=== PATIENT | male | born 1955 | race Caucasian/White ===

== ENCOUNTER 2023-06-18 09:11 | Emergency (ER) | payer BC, OTHER ==
--- NOTE | 2023-06-18 09:27 | ER ---
Nurse's Notes [facility] Name: Francisco Guerrero Age: 67 yrs Sex: Male : 1955 Arrival Date: 06/18/2023 Time: 09:11 Bed IW1 Private MD: Diagnosis: Zoster without complications Presentation: 06/18 09:23 Chief complaint: Patient states: Rash to left lateral aspect of torso. Coronavirus jl7 screen: At this time, the client does not indicate any symptoms associated with coronavirus-19. Ebola Screen: No symptoms or risks identified at this time. Initial Sepsis Screen: Does the patient meet any 2 criteria? No. Patient's initial sepsis screen is negative. Does the patient have a suspected source of infection? No. Patient's initial sepsis screen is negative. Risk Assessment: Do you want to hurt yourself or someone else? Patient reports no desire to harm self or others. Onset of symptoms is unknown. 09:23 Method Of Arrival: Ambulatory [facility] 09:23 Acuity: YARA 4 jl7 Triage Assessment: 09: General: Appears in no apparent distress. uncomfortable, Behavior is calm, cooperative, jl7 appropriate for age. Pain: Denies pain. Derm: Rash noted that is itchy, red. Historical: - Allergies: 09: No Known Allergies; jl7 - Home Meds: 09:25 Synthroid Oral [Active]; carvedilol oral [Active]; jl7 - PMHx: 09:25 Hypothyroidism; Hypertensive disorder; jl7 - Immunization history:: Adult Immunizations up to date. - Social history:: Smoking status: Patient denies any tobacco usage or history of. Screenin: [facility] ED Fall Risk Assessment (Adult) Score/Fall Risk Level 0 - 2 = Low Risk jl7 Oriented to surroundings, Maintained a safe environment. Abuse screen: Denies threats or abuse. Denies injuries from another. Nutritional screening: No deficits noted. Tuberculosis screening: No symptoms or risk factors identified. Assessment: : Reassessment: JILLIAN Hargrove in triage assessing pt. jl7 Vital Signs: : Pulse 82; Resp 15; Temp 97.7; Pulse Ox 100% ; jl7 : Weight 91.63 kg; Height 6 ft. 3 in. ; jl7 : Body Mass Index 25.25 (91.63 kg, 190.5 cm) jl7 ED Course: 09:15 Patient arrived in ED. mr 09:19 [facility]ena Morse F[facility]-C [facility] kb 09:19 Tomas Owens DO is Attending Physician. kb 09:25 Triage completed. jl7 09:25 Arm band placed on right wrist. jl7 09:27 Patient has correct armband on for positive identification. jl7 09:27 No provider procedures requiring assistance completed. Patient did not have IV access jl7 during this emergency room visit. 10:03 Provided Education on: discharge instructions. ap3 Administered Medications: No medications were administered Medication: : VIS not applicable for this client. jl7 Outcome: : Discharge ordered by MD. kb 09:28 Discharged to home ambulatory, jl7 :28 Condition: stable :28 Discharge instructions given to patient, Instructed on discharge instructions, follow up and referral plans. medication usage, Demonstrated understanding of instructions, follow-up care, medications, Prescriptions given X 3, 10:04 Patient left the ED. ap3 Signatures: Beena Morse FNP-C FNP-Talisha Schneider, Reg Reg CalderonFer, RN RN jl7 Kaitlin Chandler RN RN ap3 Corrections: (The following items were deleted from the chart) 09:26 09:25 Allergies: Aspirin; jl7 jl7
--- NOTE | 2023-06-18 09:27 | EDPHYS ---
Physician Documentation [facility] Name: Francisco Guerrero Age: 67 yrs Sex: Male : 1955 Arrival Date: 06/18/2023 Time: 09:11 Bed IW1 Private MD: ED Physician Tomas Owens HPI: 06/18 09:29 This 67 yrs old Male presents to ER via Ambulatory with complaints of Rash. kb 09:29 Patient is a 67-year-old male who presents for a rash to left flank and left abdomen kb that started 4 days ago. Reports rash has been itchy. Denies any contact with any new substances. Reports he did have COVID about 4 weeks ago after traveling to [place].. Historical: - Allergies: :25 No Known Allergies; jl7 - Home Meds: :25 Synthroid Oral [Active]; carvedilol oral [Active]; jl7 - PMHx: 09:25 Hypothyroidism; Hypertensive disorder; jl7 - Immunization history:: Adult Immunizations up to date. - Social history:: Smoking status: Patient denies any tobacco usage or history of. ROS: 09:29 Constitutional: Negative for fever, chills, and weight loss, kb 09:29 Skin: Positive for rash, of the anterior aspect of left lateral abdomen and posterior aspect of left lateral abdomen, 09:29 All other systems are negative, Exam: 09:29 Constitutional: This is a well developed, well nourished patient who is awake, alert, kb and in no acute distress. Head/Face: Normocephalic, atraumatic. Cardiovascular: Regular rate Respiratory: Respirations even and unlabored. No increased work of breathing. Talking in full sentences MS/ Extremity: Pulses equal, no cyanosis. Neurovascular intact. Full, normal range of motion. Neuro: Awake and alert, GCS 15, oriented to person, place, time, and situation. Moves all extremities. Normal gait. 09:29 Skin: rash a moderate rash is noted, rash can be described as erythematous, vesicular, consistent with zoster, on the posterior aspect of left lateral abdomen and anterior aspect of left lateral abdomen, Vital Signs: 09:23 Pulse 82; Resp 15; Temp 97.7; Pulse Ox 100% ; jl7 09:27 Weight 91.63 kg; Height 6 ft. 3 in. ; jl7 09:27 Body Mass Index 25.25 (91.63 kg, 190.5 cm) 7 MDM: 09:21 Patient medically screened. kb 09:32 Differential diagnosis: impetigo, varicella, allergic reaction, Zoster. Data reviewed: kb vital signs, nurses notes. Counseling: I had a detailed discussion with the patient and/or guardian regarding the historical points, exam findings, and any diagnostic results supporting the discharge/admit diagnosis, the need for outpatient follow up, a family practitioner, to return to the emergency department if symptoms worsen or persist or if there are any questions or concerns that arise at home. Administered Medications: No medications were administered Disposition: 09:52 I was immediately available on-site in the Emergency Department for consultation in the ms3 care of the patient. Disposition Summary: 06/18/23 09:27 Discharge Ordered Notes: Location: Home kb Condition: Stable kb Diagnosis - Zoster without complications kb Followup: kb - With: Emergency Department - When: As needed - Reason: Worsening of condition Followup: kb - With: Private Physician - When: 2 - 3 days - Reason: Recheck today's complaints, Continuance of care, Re-evaluation by your physician Discharge Instructions: - Discharge Summary Sheet kb - Shingles, [id number] kb Forms: - Medication Reconciliation Form kb - Thank You Letter kb - Antibiotic Education kb - Prescription Opioid Use kb - Patient Portal Instructions kb - Leadership Thank You Letter kb Prescriptions: - Valtrex 1 gram Oral tablet - take 1 tablet ORAL route 3 times per day for 7 days; 21 tablet; Refills: 0, kb Product Selection Permitted - Prednisone 20 mg Oral Tablet - take 1 tablet ORAL route once daily for 5 days; 5 tablet; Refills: 0, Product kb Selection Permitted - Pepcid 20 mg Oral Tablet - take 1 tablet ORAL route once daily for 10 days; 10 tablet; Refills: 0, Product kb Selection Permitted Signatures: Beena Morse, CAMILO MOONEY-Fer Cook RN RN 7 Tomas Owens DO DO ms3 Corrections: (The following items were deleted from the chart) 09:26 09:25 Allergies: Aspirin; [place] [id number]
[2023-06-18 10:22] VITALS: TEMP 97.7; O2SAT 100
== END 2023-06-18 10:04 | disposition home or self-care (01) ==
LOC: ER 09:11
DX: B02.9 Zoster without complications (principal); I10 Essential (primary) hypertension; E03.9 Hypothyroidism, unspecified
CPT/HCPCS: 99283

== ENCOUNTER 2024-09-24 18:13 | Inpatient (IN) | payer BC, OTHER ==
--- NOTE | 2024-09-24 20:01 | RAD REPORT ---
EXAM: CT brain without contrast HISTORY: DIZZINESS COMPARISON: None TECHNIQUE: Multiple contiguous axial images were obtained and a CT of the brain without contrast. Sag ittal and coronal reformats were performed. One or more of the following dose reduction techniques were used: Automated exposure control, adjust ment of the mA and/or kV according to patient size, and/or iterative reconstruction. FINDINGS: No evidence of hydrocephalus, intracranial hemorrhage, or extra-axial fluid collection. Moderate brain atrophy with moderate periventricular and deep white matter chronic microvascular isc hemic changes present. No evidence of midline shift or areas of brain edema. The calvarium is intact. The visualized paranasal sinuses and mastoid air cells are essentially clear . IMPRESSION: No evidence of acute intracranial abnormality.
[2024-09-24] MEDS ORDERED: ACETAMINOPHEN 500 MG TAB ONE (20:10)
[2024-09-24 20:20] LABS: Absolute Lymphocytes (CBC) 0.5 K/uL (0.7-4.9); Absolute Monocytes 0.3 K/uL (0.1-1.3); Absolute Neutrophil 2.3 K/uL (1.8-8.0); Basophils % 0.2 % (0-1.3); Hematocrit 43.3 % (39.6-49.0); Hemoglobin 14.7 g/dL (13.6-17.9); Lymphocytes % 17.6 % (15.3-44.8); MCH 32.3 pg (27.0-35.0); MCHC 33.9 g/dL (32.0-36.0); MCV 95.3 fL (80-100); MPV 7.8 fL (7.6-11.3); Monocytes % 8.4 % (3.3-12.3); Neutrophils % 73.8 % (41.7-73.7); Nucleated Red Blood Cells % 0.2 % (0-0); Platelets 129 thou/uL (152-406); RBC Red Blood Cell Count 4.54 M/uL (4.33-5.43); Red Cell Distribution Width 13.6 % (12.1-15.2)
[2024-09-24 20:29] LABS: PT Prothrombin Time 14.8 SECONDS (9.4-12.5); PTT, Activated Partial Thromb 30.3 SECONDS (24.3-36.9); Protime INR 1.41
[2024-09-24 20:32] LABS: Specific Gravity 1.029 (1.005-1.030); Sqamous Epithelial <5 /HPF (None Seen); Urine Bacteria None Seen /HPF (<20); Urine Bilirubin NEGATIVE (Negative); Urine Blood 2+ (Negative); Urine Clarity Clear (Clear); Urine Color Yellow (Yellow); Urine Crystals Unidentified Few /HPF (None Seen); Urine Culture Reflex Order NOT NEEDED; Urine Glucose NEGATIVE (Negative); Urine Ketones TRACE (Negative); Urine Microscopic Reflex YN ORDER UMIC; Urine Mucus Slight /HPF (None Seen); Urine Nitrite NEGATIVE (Negative); Urine Protein 1+ (Negative); Urine RBC <5 /HPF (None Seen); Urine Urobilinogen Normal (Normal); Urine WBC <5 /HPF (<5); Urine pH 5.5 (5.0-7.0)
[2024-09-24 20:36] LABS: Albumin 3.6 g/dL (3.4-5.0); Anion Gap 9.3 mEq/L (5.0-15.0); Bilirubin Total 0.7 mg/dL (0.2-1.0); Globulin 3.6 g/dL (2.3-3.5); Potassium 3.3 mEq/L (3.5-5.1); Protein, Total 7.2 g/dL (6.4-8.2)
--- NOTE | 2024-09-24 20:50 | RAD REPORT ---
EXAMINATION: ONE VIEW CHEST XR CLINICAL INDICATION: Congestion;Cough TECHNIQUE: Frontal chest projection is submitted. Examination is limited by patient positioning and t echnique. COMPARISON: No prior exam. FINDINGS: Moderate patchy opacity in the right lower lung compatible with pneumonia. Lungs otherwise clear. The heart is upper limit of normal in size. No displaced fractures identified. IMPRESSION: Patchy opacity in the right lung base compatible with pneumonia.
--- NOTE | 2024-09-24 21:51 | ER ---
Nurse's Notes [facility] Name: Francisco Guerrero Age: 68 yrs Sex: Male : 1955 Arrival Date: 09/24/2024 Time: 18:13 Bed 15 Private MD: Diagnosis: Lobar pneumonia, unspecified organism;Sepsis, unspecified organism;Hypoxemia Presentation: 09/24 19:06 Chief complaint: Patient states: shortness of breath and weakness. Is unable to walk cp4 due to balance issues. Coronavirus screen: Client denies travel out of the [place] in the last 14 days. At this time, the client does not indicate any symptoms associated with coronavirus-19. Ebola Screen: Patient negative for fever greater than or equal to 101.5 degrees Fahrenheit, and additional compatible Ebola Virus Disease symptoms Patient denies exposure to infectious person. Patient denies travel to an Ebola-affected area in the 21 days before illness onset. No symptoms or risks identified at this time. Initial Sepsis Screen: Does the patient meet any 2 criteria? HR > 90 bpm. No. Patient's initial sepsis screen is negative. Does the patient have a suspected source of infection? No. Patient's initial sepsis screen is negative. Risk Assessment: Do you want to hurt yourself or someone else? Patient reports no desire to harm self or others. Onset of symptoms was September 23, 2024. 19:06 Method Of Arrival: Wheelchair cp4 19:06 Acuity: YARA 3 cp4 Triage Assessment: 19:13 General: Appears in no apparent distress. uncomfortable, Behavior is calm, cooperative, cp4 appropriate for age. Pain: Complains of pain in Joints Pain does not radiate. Pain currently is 3 out of 10 on a pain scale. Historical: - Allergies: 19:12 Wasps; cp4 19:13 IV Contrast; cp4 - Immunization history:: Adult Immunizations up to date. - Infectious Disease History:: Denies. - Social history:: Smoking status: Patient denies any tobacco usage or history of. Screenin:26 [facility] ED Fall Risk Assessment (Adult) History of falling in the last 3 months, me1 including since admission No falls in past 3 months (0 pts) Confusion or Disorientation No (0 pts) Intoxicated or Sedated No (0 pts) Impaired Gait Yes (1 pt) Mobility Assist Device Used No (0 pt) Altered Elimination No (0 pt) Score/Fall Risk Level 0 - 2 = Low Risk Maintained a safe environment, Provided non-skid footwear, Hourly rounding (assess needs \T\ fall precautionary measures) done. Abuse screen: Denies threats or abuse. Nutritional screening: No deficits noted. Tuberculosis screening: No symptoms or risk factors identified. Assessment: 20:26 General: Appears ill, well groomed, well developed, well nourished, Behavior is calm, me1 cooperative, appropriate for age, Reports shortness of breath and weakness. Is unable to walk due to balance issues. Has had URI for about a week. Pain: Denies pain. Neuro: Level of Consciousness is awake, alert, obeys commands, Oriented to person, place, time, situation, Appropriate for age. Cardiovascular: Patient's skin is warm and dry. Respiratory: Reports shortness of breath cough that is persistent Airway is patent Respiratory effort is even, unlabored, Respiratory pattern is regular, symmetrical. GI: No signs and/or symptoms were reported involving the gastrointestinal system. : No signs and/or symptoms were reported regarding the genitourinary system. EENT: Reports nasal congestion. Derm: Skin is intact, is healthy with good turgor, Skin is pale. Musculoskeletal: Reports generalized weakness and unsteady gait. Vital Signs: 19:06 BP 128 / 78; Pulse 111; Resp 20; Temp 100.3; Pulse Ox 94% ; Weight 95.25 kg; Height 6 cp4 ft. 2 in. ; Pain 3/10; 20:00 BP 129 / 87; Pulse 101; Resp 24; Pulse Ox 96% on R/A; me1 21:00 BP 104 / 70; Pulse 96; Resp 16; Pulse Ox 91% ; me1 21:30 Pulse Ox 88% ; me1 21:32 Pulse Ox 96% on 2 lpm NC; me1 22:00 BP 104 / 65; Pulse 87; Resp 18; Temp 100; Pulse Ox 99% on 2 lpm NC; cp4 19:06 Body Mass Index 26.96 (95.25 kg, 187.96 cm) cp4 19:06 Pain Scale: Adult cp4 21:30 put on o2 at 2 lpm via nc az1 ED Course: 18:15 Patient arrived in ED. im 18:23 Laurence Purcell PA-C is PHCP. sb4 18:23 Jamir Alonso MD is Attending Physician. sb4 19:12 Triage completed. cp4 19:13 Arm band placed on right wrist. Patient placed in waiting room, in a wheelchair. cp4 19:35 Michelle Chandler, RN is Primary Nurse. me1 19:54 Head Brain Wo Cont CT In Process Unspecified. EDMS 20:06 Initial lab(s) drawn, by me, sent to lab. First set of blood cultures drawn by me. me1 20:12 CBC with Diff Sent. me1 20:12 Blood Culture Adult (2) Sent. me1 20:12 CMP Sent. me1 20:12 Lactate w/ 2H reflex if indic. Sent. me1 20:12 Protime (+inr) Sent. me1 20:12 Ptt, Activated Sent. me1 20:12 Inserted saline lock: 22 gauge in right antecubital area, using aseptic technique. me1 20:17 Second set of blood cultures drawn by me. me1 20:19 Chest Single View XRAY In Process Unspecified. EDMS 20:24 Urinalysis w/ reflexes Sent. me1 20:26 Patient has correct armband on for positive identification. Bed in low position. Call [facility] in reach. Side rails up X 1. Provided Education on: POC. Verbalized understanding.. Client placed on continuous cardiac and pulse oximetry monitoring. NIBP monitoring applied. 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 Pulse ox on. NIBP on. 20:26 No provider procedures requiring assistance completed. me1 20:51 EKG done, by ED staff, reviewed by Laurence Purcell PA-C. oe 21:49 Sixto Andujar MD is Hospitalizing Provider. sb4 23:07 Patient admitted, IV remains in place. vc1 Administered Medications: 20:20 Drug: Acetaminophen PO 1000 mg PO once Route: PO; me1 21:32 Follow up: Response: No adverse reaction; Temperature is decreased me1 22:11 Drug: AZITHromycin IVPB 500 mg IVPB once over 1 hrs; (mix in 250 mL NS) Route: IVPB; cp4 Infused Over: 1 hrs; Site: right antecubital; 23:30 Follow up: IV Status: Completed infusion cp4 22:11 Drug: Rocephin IV 1 grams IV at calculated rate once; Given slow IV push per pharmacy cp4 instructions Route: IV; Rate: calculated rate; Site: right antecubital; 22:11 Follow up: Response: No adverse reaction; IV Status: Completed infusion cp4 Medication: 20:26 VIS not applicable for this client. me1 Outcome: 21:51 Decision to Hospitalize by Provider. sb4 23:06 Admitted to ER Hold. Please see [facility] for further documentation. vc1 23:06 Condition: stable 23:06 Instructed on the need for admit, 09/25 06:15 Admitted to Tele accompanied by tech, via stretcher, room 428, vc1 Condition: stable 06:15 Patient left the ED. vc1 Signatures: Dispatcher [employer] EDMS Scot Collins Vanessa RN RN vc1 Laurence Purcell, PA-C PA-C sb4 Patrizia Arroyo Michelle, RN RN me1 Faby Dominguez cp4 Corrections: (The following items were deleted from the chart) 09/24 19:13 19:12 PMHx: Hypothyroidism; cp4 cp4 19:13 19:12 PMHx: Hypertensive disorder; cp4 cp4 20:26 19:06 Chief complaint: Patient states: shortness of breath and weakness. Is unable to me1 walk due to balance issues. cp4
--- NOTE | 2024-09-24 21:51 | EDPHYS ---
Physician Documentation [facility] Name: Francisco Guerrero Age: 68 yrs Sex: Male : 1955 Arrival Date: 09/24/2024 Time: 18:13 Bed 15 Private MD: ED Physician Jamir Alonso HPI: 09/24 19:20 This 68 yrs old Male presents to ER via Wheelchair with complaints of Flu Symptoms. sb4 19:20 URI symptoms x 5 days, tested negative for covid and flu. states he is not sb4 himself, very weak, walking abnormally- shuffling. 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 Historical: - Allergies: 19:12 Wasps; cp4 19:13 IV Contrast; cp4 - Immunization history:: Adult Immunizations up to date. - Infectious Disease History:: Denies. - Social history:: Smoking status: Patient denies any tobacco usage or history of. ROS: 19:22 Cardiovascular: Negative for chest pain, palpitations, and edema, sb4 19:22 Constitutional: Positive for fatigue, fever, malaise, 19:22 Respiratory: Positive for cough, 19:22 Abdomen/GI: Positive for nausea, 19:22 Neuro: Positive for dizziness, weakness, 19:22 All other systems are negative, Vital Signs: 19:06 BP 128 / 78; Pulse 111; Resp 20; Temp 100.3; Pulse Ox 94% ; Weight 95.25 kg; Height 6 cp4 ft. 2 in. ; Pain 3/10; 20:00 BP 129 / 87; Pulse 101; Resp 24; Pulse Ox 96% on R/A; me1 21:00 BP 104 / 70; Pulse 96; Resp 16; Pulse Ox 91% ; me1 21:30 Pulse Ox 88% ; me1 21:32 Pulse Ox 96% on 2 lpm NC; me1 22:00 BP 104 / 65; Pulse 87; Resp 18; Temp 100; Pulse Ox 99% on 2 lpm NC; cp4 19:06 Body Mass Index 26.96 (95.25 kg, 187.96 cm) cp4 19:06 Pain Scale: Adult cp4 21:30 put on o2 at 2 lpm via nc me1 MDM: 18:31 Medical Screening Exam initiated sb4 22:56 Data reviewed: vital signs, nurses notes, lab test result(s), EKG, radiologic studies, sb4 and as a result, I will admit patient. Consideration of Admission/Observation Patient was admitted/placed on observation. Counseling: I had a detailed discussion with the patient and/or guardian regarding the historical points, exam findings, and any diagnostic results supporting the discharge/admit diagnosis, lab results, radiology results, the need for further work-up and treatment in the hospital. 09/24 19:20 Order name: Blood Culture Adult (2) sb4 09/24 19:20 Order name: CBC with Diff; Complete Time: 20:39 sb4 09/24 19:20 Order name: CMP; Complete Time: 20:39 sb4 09/24 19:20 Order name: Lactate w/ 2H reflex if indic.; Complete Time: 20:41 sb4 09/24 19:20 Order name: Protime (+inr); Complete Time: 20:39 sb4 09/24 19:20 Order name: Ptt, Activated; Complete Time: 20:39 sb4 09/24 19:20 Order name: Urinalysis w/ reflexes; Complete Time: 20:39 sb4 09/24 20:36 Order name: Glucose, Ancillary Testing; Complete Time: 20:39 EDMS 09/24 22:55 Order name: COVID-19 Ag + Flu A+B Ag EDMS 09/24 23:58 Order name: CBC with Automated Diff EDMS 09/24 23:58 Order name: CBC with Automated Diff EDMS 09/24 23:58 Order name: Comprehensive Metabolic Panel EDMS 09/24 23:58 Order name: Comprehensive Metabolic Panel EDMS 09/24 23:58 Order name: Creatine Phosphokinase EDMS 09/24 23:58 Order name: Creatine Phosphokinase EDMS 09/24 23:58 Order name: Magnesium EDMS 09/24 23:58 Order name: Magnesium EDMS 09/24 23:58 Order name: Phosphorus EDMS 09/24 23:58 Order name: Phosphorus EDMS 09/24 23:58 Order name: Thyroid Stimulating Hormone EDMS 09/24 23:58 Order name: Thyroid Stimulating Hormone EDMS 09/24 19:20 Order name: Chest Single View XRAY; Complete Time: 20:54 sb4 09/24 19:20 Order name: Head Brain Wo Cont CT; Complete Time: 20:02 sb4 09/24 19:20 Order name: Accucheck; Complete Time: 20:24 sb4 09/24 19:20 Order name: Cardiac monitoring; Complete Time: 20:20 sb4 09/24 19:20 Order name: EKG - Nurse/Tech; Complete Time: 20:20 sb4 09/24 19:20 Order name: IV Saline Lock - Large Bore; Complete Time: 20:12 sb4 09/24 19:20 Order name: Labs collected and sent; Complete Time: 20:12 sb4 09/24 19:20 Order name: O2 Per Protocol; Complete Time: 20:12 sb4 09/24 19:20 Order name: O2 Sat Monitoring; Complete Time: 20:12 sb4 09/24 19:20 Order name: Vital Signs; Complete Time: 20:12 sb4 EC:07 Rate is 104 beats/min. Rhythm is regular, Sinus tachycardia. VT interval is normal at sb4 166 msec. QRS interval is normal at 94 msec. QT interval is normal at 316 msec. No Q waves. T waves are Normal. No ST changes noted. Clinical impression: Sinus tachycardia. Interpreted by me. Reviewed by me. Administered Medications: 20:20 Drug: Acetaminophen PO 1000 mg PO once Route: PO; me1 21:32 Follow up: Response: No adverse reaction; Temperature is decreased me1 22:11 Drug: AZITHromycin IVPB 500 mg IVPB once over 1 hrs; (mix in 250 mL NS) Route: IVPB; cp4 Infused Over: 1 hrs; Site: right antecubital; 23:30 Follow up: IV Status: Completed infusion cp4 22:11 Drug: Rocephin IV 1 grams IV at calculated rate once; Given slow IV push per pharmacy cp4 instructions Route: IV; Rate: calculated rate; Site: right antecubital; 22:11 Follow up: Response: No adverse reaction; IV Status: Completed infusion cp4 Disposition: 22:57 Chart complete. sb4 Disposition Summary: 09/24/24 21:51 Hospitalization Ordered Notes: Hospitalization Status: Inpatient Admission sb4 Provider: Sixto Andujar Condition: Fair sb4 Problem: new sb4 Symptoms: are unchanged sb4 Bed/Room Type: Standard sb4 Location: Telemetry/MedSurg (Inpatient)(09/25/24 05:01) kl Room Assignment: 428(09/25/24 05:01) Diagnosis - Lobar pneumonia, unspecified organism sb4 - Sepsis, unspecified organism sb4 - Hypoxemia sb4 Forms: - Medication Reconciliation Form sb4 - SBAR form sb4 - Leadership Thank You Letter sb4 Signatures: Dispatcher [employer] EDMS Yuki Hansen RN RN kl Calcote, Vanessa, RN RN vc1 Laurence Purcell PA-C PAObinna sb4 Michelle Chandler RN RN me1 Faby Dominguez cp4 Corrections: (The following items were deleted from the chart) 19:13 19:12 PMHx: Hypothyroidism; cp4 cp4 19:13 19:12 PMHx: Hypertensive disorder; cp4 cp4 19:20 19:20 BLOOD CULTURE*+BA.LAB.BRZ ordered. EDMS EDMS 19:20 19:20 CBC+H.LAB.BRZ ordered. EDMS EDMS 19:20 19:20 COMPREHENSIVE METABOLIC PANEL+C.LAB.BRZ ordered. EDMS EDMS 19:20 19:20 LACTATE+C.LAB.BRZ ordered. EDMS EDMS 19:20 19:20 PROTIME (+INR)+COAG.LAB.BRZ ordered. EDMS EDMS 19:20 19:20 PTT, ACTIVATED+COAG.LAB.BRZ ordered. EDMS EDMS 19:20 19:20 Urinalysis+U.LAB.BRZ ordered. EDMS EDMS 19:20 19:20 Chest Single View+RAD.RAD.BRZ ordered. EDMS EDMS 19:20 19:20 Head Brain Wo Cont+CT.RAD.BRZ ordered. EDMS EDMS 21:56 21:51 Telemetry/MedSurg (Inpatient) sb4 vc1 21:56 21:51 sb4 vc1 09/25 05:01 09/24 21:56 [facility] [[email or web address] ER HOLD vc1 kl 09/25 05:01 09/24 21:56 ERHOLD- vc1 kl
[2024-09-24] MEDS ORDERED: CEFTRIAXONE 1000 MG/VIAL ONE (22:00)
[2024-09-24] MEDS ORDERED: AZITHROMYCIN 500 MG INJ IVPB ONE (22:00)
[2024-09-24] MEDS ORDERED: NA CHLORIDE 0.9% 250 ML ONE (22:00)
[2024-09-24] MEDS: AZITHROMYCIN 1 GM PACKET PO ONE (23:00)
[2024-09-24] MEDS: NA CHLORIDE 0.9% 1,000 ML IV SCH (23:45)
--- NOTE | 2024-09-24 23:53 | P.HP ---
Certification for Inpatient Patient admitted to: Inpatient With expected LOS: >2 Midnights Practitioner: I am a practitioner with admitting privileges, knowledge of patient current condition, hospital course, and medical plan of care. Services: Services provided to patient in accordance with Admission requirements found in Title 42 Section 412.3 of the Code of Federal Regulations Patient History Date of Service: 09/24/24 Reason for admission: pneumonia History of Present Illness: 68-year-old male with history of of hypothyroidism, non-Hodgkin's lymphoma, sarcoma, presents with complaints of cough shortness of breath for 5 days. Reports having a previously negative COVID and flu test. Patient also reports having weakness. States that sputum color he is not sure. States that his cancers are in remission. In the emergency room he had an abnormal chest x-ray. He is being admitted for weakness and suspected community-acquired pneumonia. Reported that his sats were 88% on room air when he initially arrived. Allergies Iodinated Contrast Media Allergy (Verified 09/24/24 23:07) Itching/Hives/Rash venom-wasp Allergy (Verified 09/24/24 23:07) Anaphylaxis Review of Systems 10-point ROS is otherwise unremarkable Respiratory: Cough, Shortness of Breath Neurological: Weakness, Incoordination Physical Examination - Physical Exam General: Alert, Oriented x3 HEENT: Atraumatic, Normocephalic Respiratory: Clear to auscultation bilaterally, Normal air movement Cardiovascular: Normal pulses, Regular rate/rhythm Gastrointestinal: Normal bowel sounds, Soft and benign, Non-distended Musculoskeletal: No clubbing Integumentary: No rashes, No breakdown Neurological: Normal speech - Studies Laboratory Data (last 24 hrs) 09/24/24 09/24/24 09/24/24 20:06 20:06 20:06 WBC 3.10 L Hgb 14.7 Hct 43.3 Plt Count 129 L PT 14.8 H INR 1.41 APTT 30.3 Sodium 135 L Potassium 3.3 L BUN 15 Creatinine 1.18 Glucose 124 H Total Bilirubin 0.7 AST 27 ALT 36 Alkaline Phosphatase 75 Assessment and Plan - Problems (Diagnosis) (1) Pneumonia Current Visit: Yes Status: Acute (2) Dizziness Current Visit: Yes Status: Acute (3) Hypothyroidism Current Visit: Yes Status: Acute - Plan 68-year-old male with history of of hypothyroidism, non-Hodgkin's lymphoma, sarcoma, presents with complaints of cough shortness of breath for 5 days. # community acquired pneumonia #acute hypoxemic respiratory failure #RLL PNA --denies aspiration, or recent vomiting --covid and flu pending --O2, Unasyn azithromycin #dizziness --?hypotension --hold antihypertensive medications --gentle hydration --PT OT when more stable --consider head CT --check CK #hypothyroidism --check TSH #history of multiple cancers --remission - Advance Directives Does patient have a Living Will: No Does patient have a Durable POA for Healthcare: No
[2024-09-24] MEDS ORDERED: ALBUTEROL 2.5 MG/3 ML NEB SOL NEB PRN (23:54)
[2024-09-25] MEDS ORDERED: AMPICILLIN/SULBACT 1.5GM VIAL ONE (00:58)
[2024-09-25] MEDS ORDERED: NA CHLORIDE 0.9% 100 ML ONE (00:59)
[2024-09-25] MEDS: AMPICILLIN/SULBACT 1.5 GM in NA CHLORIDE 0.9% 100 ML IVPB SCH (01:00)
[2024-09-25] MEDS ORDERED: NA CHLORIDE 0.9% 1,000 ML ONE (02:25)
[2024-09-25] MEDS: ACETAMINOPHEN 325 MG TABLET PO PRN (02:40)
[2024-09-25] MEDS ORDERED: ACETAMINOPHEN 325 MG TABLET ONE (02:41)
[2024-09-25 03:47] LABS: Influenza A Ag Negative; Influenza B Ag Negative; SARS-CoV-2 Antigen Rapid Res Negative (Negative)
[2024-09-25 04:13] LABS: Absolute Lymphocytes (CBC) 0.6 K/uL (0.7-4.9); Absolute Monocytes 0.2 K/uL (0.1-1.3); Absolute Neutrophil 2.1 K/uL (1.8-8.0); Basophils % 0.2 % (0-1.3); Eosinophils % 0.1 % (0-4.4); Hematocrit 38.1 % (39.6-49.0); Hemoglobin 13.3 g/dL (13.6-17.9); Lymphocytes % 19.4 % (15.3-44.8); MCH 32.9 pg (27.0-35.0); MCHC 34.9 g/dL (32.0-36.0); MCV 94.1 fL (80-100); MPV 7.8 fL (7.6-11.3); Monocytes % 8.2 % (3.3-12.3); Neutrophils % 72.1 % (41.7-73.7); Nucleated Red Blood Cells % 0.2 % (0-0); Platelets 113 thou/uL (152-406); RBC Red Blood Cell Count 4.05 M/uL (4.33-5.43); Red Cell Distribution Width 13.8 % (12.1-15.2)
[2024-09-25 04:31] LABS: Albumin/Globulin Ratio 0.9 (1.1-1.8); Anion Gap 8.3 mEq/L (5.0-15.0); Bilirubin Total 0.6 mg/dL (0.2-1.0); Globulin 3.3 g/dL (2.3-3.5); Phosphorus 2.9 mg/dL (2.5-4.9); Potassium 3.3 mEq/L (3.5-5.1); Protein, Total 6.3 g/dL (6.4-8.2)
[2024-09-25] MEDS: ENOXAPARIN 40 MG/0.4 ML SQ SCH (09:00)
[2024-09-25] MEDS: AMPICILLIN/SULBACT 3 GM in NA CHLORIDE 0.9% 100 ML IVPB SCH (12:42)
[2024-09-25] MEDS: carvediloL 3.125 MG TAB PO SCH (20:59)
[2024-09-26 06:29] LABS: Absolute Lymphocytes (CBC) 0.7 K/uL (0.7-4.9); Absolute Monocytes 0.2 K/uL (0.1-1.3); Absolute Neutrophil 1.3 K/uL (1.8-8.0); Basophils % 0.3 % (0-1.3); Eosinophils % 0.6 % (0-4.4); Hematocrit 34.6 % (39.6-49.0); Hemoglobin 12.2 g/dL (13.6-17.9); Lymphocytes % 32.5 % (15.3-44.8); MCH 32.8 pg (27.0-35.0); MCHC 35.2 g/dL (32.0-36.0); MCV 93.2 fL (80-100); MPV 8.4 fL (7.6-11.3); Monocytes % 8.9 % (3.3-12.3); Neutrophils % 57.7 % (41.7-73.7); Nucleated Red Blood Cells % 0.1 % (0-0); Percent Reticulocyte Count 0.52 % (0.4-2.05); Platelets 106 thou/uL (152-406); RBC Red Blood Cell Count 3.72 M/uL (4.33-5.43); Red Cell Distribution Width 13.4 % (12.1-15.2)
[2024-09-26 06:44] LABS: Albumin 2.8 g/dL (3.4-5.0); Anion Gap 7.4 mEq/L (5.0-15.0); Bilirubin Total 0.4 mg/dL (0.2-1.0); Globulin 2.9 g/dL (2.3-3.5); Magnesium 2.2 mg/dL (1.6-2.4); Potassium 3.4 mEq/L (3.5-5.1); Protein, Total 5.7 g/dL (6.4-8.2)
--- NOTE | 2024-09-26 07:35 | RAD REPORT ---
EXAMINATION: ONE VIEW CHEST XR CLINICAL INDICATION: pneumonia TECHNIQUE: Frontal chest projection is submitted. Examination is limited by patient positioning and t echnique. COMPARISON: 09/24/2024 FINDINGS: Moderate bibasilar lung opacities are present, greater on the right, progressive since comparative st udy. This is most compatible with moderate worsening in bibasilar pneumonia. The heart is upper limit of normal in size. No displaced fractures identified. IMPRESSION: Moderate worsening in bibasilar pneumonia since comparison study.
[2024-09-26] MEDS: LEVOTHYROXINE SOD 0.075 MG TAB PO SCH (07:56)
[2024-09-27 00:07] VITALS: BMI 26.9
[2024-09-27 06:55] LABS: Absolute Lymphocytes (CBC) 0.9 K/uL (0.7-4.9); Absolute Monocytes 0.2 K/uL (0.1-1.3); Absolute Neutrophil 1.1 K/uL (1.8-8.0); Basophils % 0.2 % (0-1.3); Eosinophils % 0.8 % (0-4.4); Hematocrit 34.7 % (39.6-49.0); Lymphocytes % 39.4 % (15.3-44.8); MCH 32.8 pg (27.0-35.0); MCHC 34.7 g/dL (32.0-36.0); MCV 94.7 fL (80-100); MPV 7.9 fL (7.6-11.3); Monocytes % 8.6 % (3.3-12.3); Nucleated Red Blood Cells % 0.2 % (0-0); Platelets 130 thou/uL (152-406); RBC Red Blood Cell Count 3.66 M/uL (4.33-5.43); Red Cell Distribution Width 13.3 % (12.1-15.2)
[2024-09-27 07:04] LABS: Albumin 2.6 g/dL (3.4-5.0); Albumin/Globulin Ratio 0.9 (1.1-1.8); Anion Gap 8.3 mEq/L (5.0-15.0); Bilirubin Total 0.4 mg/dL (0.2-1.0); Magnesium 2.3 mg/dL (1.6-2.4); Potassium 3.3 mEq/L (3.5-5.1); Protein, Total 5.6 g/dL (6.4-8.2)
[2024-09-27] MEDS: CYANOCOBALAMIN 1000MCG/ML INJ IM ONE (10:55)
[2024-09-27] MEDS: SOD FERRIC GLUC COMPLX/SUCROSE 125 MG in NA CHLORIDE 0.9% 100 ML IV SCH (10:56)
--- NOTE | 2024-09-27 14:29 | RAD REPORT ---
EXAMINATION: ONE VIEW CHEST XR CLINICAL INDICATION: Male, 68 years old.,pneumonia TECHNIQUE: Frontal chest projection is submitted. Examination is limited by patient positioning and t echnique. COMPARISON: 09/26/2024 FINDINGS: Partial improvement of bibasilar patchy opacities with some residual opacities in the right. No pneu mothorax or sizable effusion. The heart is normal in size. Mediastinal contours are unremarkable. IMPRESSION: Partial improvement of bibasilar airspace opacities suggesting improving pneumonitis.
[2024-09-27 15:59] VITALS: BP 116/62; TEMP 99
[2024-09-27 16:17] VITALS: O2SAT 94
[2024-09-27] MEDS: levoFLOXacin 500 MG TAB PO ONE (17:13)
--- NOTE | 2024-09-29 12:19 | EKG ---
Test Date: 2024-09-24 Test Time: 20:16:36 Supervisor Title: PILAR MEASUREMENT RESULTS: Intervals: Rate: 104 WA: 166 QRSD: 94 QT: 316 QTc: 415 [place]: P: 27 WA: 166 QRS: 28 T: 50 INTERPRETIVE STATEMENTS: Sinus tachycardia Otherwise normal ECG No previous ECG available for comparison Electronically Signed On 09-29-24 12:13:38 [facility] [place] by Gerardo Villasenor
== END 2024-09-27 18:11 | disposition home or self-care (01) | DRG 871 ==
LOC: ER 18:13 → ERHOLD 23:54 → 4TH 09-25 05:37
PROVIDERS: ADMIT Internal Medicine; ATTEND Hospitalist
DX: A41.9 Sepsis, unspecified organism (principal); J18.1 Lobar pneumonia, unspecified organism; J96.01 Acute respiratory failure with hypoxia; E03.9 Hypothyroidism, unspecified; Z11.52 Encounter for screening for COVID-19; Z85.72 Personal history of non-Hodgkin lymphomas; Z91.041 Radiographic dye allergy status; Z85.841 Personal history of malignant neoplasm of brain
CPT/HCPCS: 36415; 70450; 71045; 80053; 81001; 82550; 82607; 82947; 83540; 83605; 83735; 83880; 84100; 84145; 84443; 85025; 85044; 85610; 85730; 87040; 87428; 93005; 96365; 96375; 99285; J0295; J0696; J1650; J2916; J3420; J7030; J7050